=== PATIENT | male | born 1935 | race Caucasian/White ===

== ENCOUNTER 2020-11-06 18:02 | Inpatient (IN) | payer MEDICARE, BC ==
[~2020-11-06] VITALS: Ht 139.7 cm; Wt 68.1 kg
[2020-11-06] MEDS ORDERED: ATOR40TA PO (18:23)
[2020-11-06] MEDS ORDERED: DIVA-78 PO (18:23)
[2020-11-06] MEDS ORDERED: ASPI81TA31 PO (18:23)
[2020-11-06] MEDS ORDERED: CARV25TA2 PO (18:23)
--- NOTE | 2020-11-06 18:27 | NUR ---
PT IS IN ROOM #1B. DR GIL EVALUATED THE PT.
[2020-11-06] MEDS ORDERED: MELA5TAB PO (18:34)
[2020-11-06] MEDS ORDERED: NITR0.4T SL (18:34)
[2020-11-06] MEDS ORDERED: LEVO75TA7 PO (18:34)
[2020-11-06] MEDS ORDERED: POLY17PO4 PO (18:34)
[2020-11-06] MEDS ORDERED: LOSA50TA39 PO (18:34)
[2020-11-06 19:07] LABS: HEMATOCRIT 39.4 % (36.7-47.1); MEAN CORPUSCULAR HEMOGLOBIN 31.1 uug (23.8-33.4); MEAN CORPUSCULAR VOLUME 91.5 fL (73.0-96.2); PLATELET COUNT (AUTO) 176 K/uL (152-348)
--- NOTE | 2020-11-06 19:09 | NUR ---
REPORT GIVEN TO METAL TRIM ERECTOR RN.
[2020-11-06 19:15] LABS: ALANINE AMINOTRANSFERASE 18 U/L (16-63); ALKALINE PHOSPHATASE 70 U/L (50-136); ASPARTATE AMINOTRANSFERASE 20 U/L (15-37); BILIRUBIN,DIRECT 0.1 mg/dL (0.0-0.2); BILIRUBIN,TOTAL 0.6 mg/dL (0.2-1.0); CARBON DIOXIDE 25 mmol/L (21-32); CHLORIDE 107 mmol/L (98-107); CREATININE 1.1 mg/dL (0.6-1.3); GLUCOSE 104 mg/dL (74-106); POTASSIUM 4.1 mmol/L (3.5-5.1); TOTAL PROTEIN, SERUM 7.1 g/dL (6.4-8.2); UREA NITROGEN, BLOOD 31 mg/dL (7-18)
[2020-11-06] MEDS ORDERED: NITROGLYCERIN OINT 1 GM PACKET TP ONE ×2 (19:30→20:13)
[2020-11-06] MEDS ORDERED: METOPROLOL TARTRATE 50 MG TABLET PO ONE (19:30)
[2020-11-06] MEDS ORDERED: ASPIRIN 81 MG TAB.CHEW PO ONE (19:30)
[2020-11-06] MEDS ORDERED: NITROGLYCERIN 0.4 MG/TAB BOTTLE SL SCH (20:00)
[2020-11-06] MEDS: ENOXAPARIN SODIUM 40 MG/0.4 ML DISP.SYRIN SQ SCH (20:00)
[2020-11-06] MEDS ORDERED: hydrALAZINE HCL 20 MG/1 ML VIAL IV PRN (20:00)
[2020-11-06] MEDS ORDERED: ASPIRIN 81 MG TAB.CHEW ONE (20:12)
[2020-11-06] MEDS ORDERED: METOPROLOL TARTRATE 50 MG TABLET ONE (20:13)
--- NOTE | 2020-11-06 20:20 | NUR ---
Dr Bazzi spoke with Dr Philip for cardiology consult.
[2020-11-06 20:31] LABS: CHOLESTEROL 133 mg/dL (<200); HDL CHOLESTEROL 34 mg/dL (40-60); TRIGLYCERIDES 78 MG/DL (30-150)
[2020-11-06 20:34] LABS: CARBON DIOXIDE 26 mmol/L (21-32); CHLORIDE 107 mmol/L (98-107); CREATININE 1.2 mg/dL (0.6-1.3); GLUCOSE 104 mg/dL (74-106); POTASSIUM 4.1 mmol/L (3.5-5.1); UREA NITROGEN, BLOOD 30 mg/dL (7-18)
[2020-11-06 20:39] LABS: THYROID STIMULATING HORMONE 5.871 mIU/mL (0.358-3.740)
[2020-11-06 20:40] LABS: ALANINE AMINOTRANSFERASE 19 U/L (16-63); ALKALINE PHOSPHATASE 72 U/L (50-136); ASPARTATE AMINOTRANSFERASE 21 U/L (15-37); BILIRUBIN,TOTAL 0.6 mg/dL (0.2-1.0); TOTAL PROTEIN, SERUM 7.2 g/dL (6.4-8.2)
[2020-11-06] MEDS ORDERED: SIMVASTATIN 40 MG TABLET PO SCH (21:00)
[2020-11-06] MEDS ORDERED: BLOOD SUGAR DIAGNOSTIC 1 EACH STRIP VI SCH (21:00)
[2020-11-06 21:39] LABS: HEMATOCRIT 38.9 % (36.7-47.1); MEAN CORPUSCULAR HEMOGLOBIN 31.1 uug (23.8-33.4); MEAN CORPUSCULAR VOLUME 91.1 fL (73.0-96.2); PLATELET COUNT (AUTO) 180 K/uL (152-348)
[2020-11-06 23:00] VITALS: BP 118/60
--- NOTE | 2020-11-06 23:00 | NUR ---
Pt admitted from ER to Tele. Patient barely arousable with sternal rub. Will occasionally use right hand to push this nurse away during painful stimuli. PERRLA. Sinus carter on tele with occasional PVCs. Per ER nurse, do not give patient any blood thinners. ER nurse stated that this order is per Dr. Stephenson. Patient is in no distress at this time. Suction set up at bedside. IV site intact.
[2020-11-07] VITALS: BP 119/39
[2020-11-07] MEDS ORDERED: NITROGLYCERIN 0.4 MG/TAB BOTTLE SL PRN
[2020-11-07] MEDS: BLOOD SUGAR DIAGNOSTIC 1 EACH STRIP VI SCH ×4 (00:07→18:40)
--- NOTE | 2020-11-07 02:00 | NUR ---
Patient heart rate dropped to 41. Merrick Brumfield notified with orders to place pacer pads on patient. HR is now between 70-85. No distress noted. Will continue to observe patient.
[2020-11-07 04:00] VITALS: BP 147/67
--- NOTE | 2020-11-07 06:01 | NUR ---
Pt still hard to arouse but seems less somnolent this morning. Will open eyes and retract to sternal rub. Not able to follow commands. IV site intact. Pt has external pacer monitor on. V-pacing on monitor. No distress or SOB noted. No other issues or concerns at this time, will endorse to day shift.
[2020-11-07 06:12] LABS: MEAN CORPUSCULAR HEMOGLOBIN 31.3 uug (23.8-33.4); MEAN CORPUSCULAR VOLUME 92.4 fL (73.0-96.2); PLATELET COUNT (AUTO) 142 K/uL (152-348)
[2020-11-07] MEDS: LEVOTHYROXINE SODIUM 75 MCG TABLET PO SCH (06:24)
[2020-11-07 06:43] LABS: POTASSIUM 4.3 mmol/L (3.5-5.1)
--- NOTE | 2020-11-07 06:56 | NUR ---
Accucheck reading of 86. Pt is NPO waiting for ST eval and is not running fluids due to being congested and hx of CHF. Merrick Brumfield MACHINE BOBBIN WINDER notified, with no new orders at this time.
--- NOTE | 2020-11-07 07:59 | NUR ---
Received pt from shift production associate RN. Pt is a/o x 1. He is on Q4H neuro checks. Pt has external monitor pads on, V pacing. Pt on room air, NPO on Q6H accu-checks. Was able to wake pt with moderate touch to arm this morning and responded to questions. He denied being in pain and stated that he was in [place]. shift production associate reported to hold all blood thinners until cardiology sees pt and to hold coreg due to low puld without external pads. Pt does not seem to be in acute distress, is back asleep. will continue to monitor.
--- NOTE | 2020-11-07 08:14 | NUR ---
SW Consult technicians and trades workers attempted to connect with patient to provide stroke resources but was unable to see pt due to pt sleeping.
[2020-11-07] MEDS: DIVALPROEX 250 MG TABLET.DR PO SCH ×2 (09:00→17:00)
[2020-11-07] MEDS: LOSARTAN POTASSIUM 50 MG TABLET PO SCH (09:00)
[2020-11-07] MEDS: ASPIRIN 81 MG TAB.CHEW PO SCH (09:00)
[2020-11-07] MEDS ORDERED: CARVEDILOL 25 MG TABLET PO SCH (09:00)
[2020-11-07] MEDS ORDERED: ASPIRIN EC 81 MG TABLET.DR PO SCH (09:00)
[2020-11-07] MEDS: PANTOPRAZOLE SODIUM 40 MG VIAL IV SCH (11:10)
[2020-11-07 12:00] VITALS: BP 149/62
[2020-11-07] MEDS: IV D5 1/2 NS 1000 ML 1,000 ML IV PRN (12:39)
[2020-11-07 16:00] VITALS: BP 100/62
--- NOTE | 2020-11-07 16:33 | NUR ---
Pt is more verbal and responsive, he was able to state that he is in the hospital and that he has children but did not want to state their names. Pt responds to communication. right side is strong. will continue to monitor.
[2020-11-07] MEDS ORDERED: Medication Not On Formulary EA (Melatonin 1 TAB) PO SCH (18:00)
[2020-11-07 20:05] VITALS: BP 147/67
--- NOTE | 2020-11-07 20:23 | NUR ---
Patient in bed awake alert x1. Responsive to verbal and stimuli but unable to follow commands.Iv on right Ac 18 g with IVF infusing well. Tolerated well.Patient incontinent. Pericare rendered and repositioned patient.Received report from day shift nurse to continue to adm Lovenox as per ordered by .Due meds given. Will continue to monitor.Son/janie at Bedside.VSs
[2020-11-07] MEDS: ENOXAPARIN SODIUM 40 MG/0.4 ML DISP.SYRIN SQ SCH (20:37)
[2020-11-07] MEDS: MELATONIN 3 MG TABLET PO SCH (21:00)
[2020-11-07] MEDS: ATORVASTATIN 40 MG TABLET PO SCH (21:00)
[2020-11-08 00:05] VITALS: BP 147/62
[2020-11-08] MEDS: BLOOD SUGAR DIAGNOSTIC 1 EACH STRIP VI SCH ×4 (00:39→17:47)
[2020-11-08] MEDS: IV D5 1/2 NS 1000 ML 1,000 ML IV PRN ×2 (01:44→14:39)
[2020-11-08 04:05] VITALS: BP 153/84
[2020-11-08 04:30] LABS: *BILIRUBIN,URIN NEGATIVE (NEGATIVE); *BLOOD, URINE 3+ (NEGATIVE); *CLARITY,URINE CLOUDY (CLEAR); *COLOR,URINE YELLOW (YELLOW); *KETONES,URINE NEGATIVE (NEGATIVE); *UROBILINOGEN,URINE 0.2 E.U./dl (NORMAL); LEUKOCYTE ESTERASE ,URINE 3+ (NEGATIVE); NITRITE, URINE POSITIVE (NEGATIVE); UGLUCOSE NEGATIVE (NEGATIVE)
[2020-11-08 04:43] LABS: BACTERIA,URINE MANY /HPF (NONE SEEN); RBC,URINE 50-80 /HPF (0-3); SQUAMOUS EPITHELIAL CELL,UR FEW /HPF (NONE SEEN); WBC,URINE TNTC /HPF (0-3)
[2020-11-08] MEDS: LEVOTHYROXINE SODIUM 75 MCG TABLET PO SCH (06:58)
--- NOTE | 2020-11-08 08:30 | NUR ---
pt seen by ST, swallow eval performed, per ST patient will be placed on pureed diet with nectar thick liquids.
[2020-11-08] MEDS: ASPIRIN 81 MG TAB.CHEW PO SCH (08:39)
[2020-11-08] MEDS: PANTOPRAZOLE SODIUM 40 MG VIAL IV SCH (08:39)
[2020-11-08 08:43] VITALS: BP 181/78
[2020-11-08] MEDS: LOSARTAN POTASSIUM 50 MG TABLET PO SCH (08:43)
[2020-11-08] MEDS: DIVALPROEX 250 MG TABLET.DR PO SCH ×2 (08:47→17:00)
--- NOTE | 2020-11-08 09:01 | NUR ---
Rounds by Dr. Kenyon, with goal of the day to have patient on R/A, DTR currently at bedside speaking with Dr. Kenyon. Addendum: 11/08/20 at 0909 by OMAIRA CASTELLANO RN wrong pt
--- NOTE | 2020-11-08 09:09 | NUR ---
patient had morning medications crushed with apple sauce, tolerated well, no episodes of coughing after swallowing medications, patient is currently being seen by PT
[2020-11-08] MEDS: CLOPIDOGREL 75 MG TABLET PO SCH (11:37)
--- NOTE | 2020-11-08 13:55 | NUR ---
SW Consult bunk house worker attempted to connect with patient to intervene and provide stroke resources but was unable to talk to pt due to lack of participation. Pt was not alert nor oriented. Pt was shaking when SW introduced herself and began to move. Pt stated to SW, get the hell out of here. Pt began to reach for his pillow and therefore, SW walked out of room. SHERI checked in with RN in charge of pt (Rosalba Burrell RN) and asked her to call SW if family members come visit pt to provide resources for stroke. Due to pt not being able to cooperate, SW was not able to complete PHQ9. Will follow up.
[2020-11-08 15:53] VITALS: BP 145/68
--- NOTE | 2020-11-08 19:00 | NUR ---
endorsement given to oncoming shift.
--- NOTE | 2020-11-08 19:45 | NUR ---
Patient in resting in bed comfortably .HOB elevated.On Ra.No acute distress noted.Iv on right AC with IVF running well.Patient is schedule for CTA brain tomorrow.SOn at bedside,made aware and consent signed by patient.Will continue to monitor patient. Addendum: 11/09/20 at 0446 by CHAR BUSTOS RN Correction: Consent signed by Joe /Omer.
[2020-11-08 20:05] VITALS: BP 156/78
[2020-11-08] MEDS: ATORVASTATIN 40 MG TABLET PO SCH (21:08)
[2020-11-08] MEDS: MELATONIN 3 MG TABLET PO SCH (21:08)
[2020-11-08] MEDS: ENOXAPARIN SODIUM 40 MG/0.4 ML DISP.SYRIN SQ SCH (21:18)
[2020-11-09] VITALS: BP 106/58
[2020-11-09] MEDS: BLOOD SUGAR DIAGNOSTIC 1 EACH STRIP VI SCH ×4 (00:01→18:10)
--- NOTE | 2020-11-09 00:02 | NUR ---
Patient's Blood sugar is 169.Notified Dr Kostas Ramos at this time.Will continue to monitor.
[2020-11-09] MEDS: IV D5 1/2 NS 1000 ML 1,000 ML IV PRN ×2 (03:10→13:36)
[2020-11-09 04:05] VITALS: BP 114/52
[2020-11-09] MEDS: LEVOTHYROXINE SODIUM 75 MCG TABLET PO SCH (06:00)
--- NOTE | 2020-11-09 07:13 | NUR ---
Patient appears lethargic but aroused by tactile stimuli then drift back to sleep.No acute distress noted. NSR on Tele .Continue on IVF. VSS.
[2020-11-09] MEDS: PANTOPRAZOLE SODIUM 40 MG VIAL IV SCH (08:17)
[2020-11-09] MEDS: CLOPIDOGREL 75 MG TABLET PO SCH (08:56)
[2020-11-09] MEDS: LOSARTAN POTASSIUM 50 MG TABLET PO SCH (08:56)
[2020-11-09] MEDS: ASPIRIN 81 MG TAB.CHEW PO SCH (08:56)
--- NOTE | 2020-11-09 09:11 | NUR ---
seen by dr duran and [email or web address] see notes
[2020-11-09 12:00] VITALS: BP 99/52
[2020-11-09 16:00] VITALS: BP 132/62
[2020-11-09] MEDS ORDERED: IOHEXOL 350 100 ML INFUS..BTL ONE (16:14)
[2020-11-09] MEDS ORDERED: IV NORMAL SALINE 250 ML IV ONE (16:14)
[2020-11-09] MEDS ORDERED: SWABABLE VALVE TRANSFER SET EA MC ONE (16:14)
--- NOTE | 2020-11-09 17:46 | NUR ---
TRIED TO REACH DR DU REGARDING RESULTS OF CTA BRAIN MESSAGE LEFT ON ANSWERING MACHINE
--- NOTE | 2020-11-09 18:13 | NUR ---
ALSO TRIED TO REACH DR KUMAR REGARDING RESULTS OF CTA BRAIN MESSAGE LEFT
[2020-11-09] MEDS ORDERED: CLOP75TA15 PO (20:11)
[2020-11-09] MEDS ORDERED: PANT40VI IV (20:11)
[2020-11-09] MEDS ORDERED: ENOX40DI SQ (20:11)
== END 2020-11-09 19:44 | DRG 64 ==
LOC: ER 18:08 → TELE3 21:02 → MEDSURG3 11-09 08:22
PROVIDERS: ADMIT Internal Medicine; ATTEND Internal Medicine
DX: I63.9 Cerebral infarction, unspecified (principal); I21.4 Non-ST elevation (NSTEMI) myocardial infarction; G93.41 Metabolic encephalopathy; N17.0 Acute kidney failure with tubular necrosis; I69.354 Hemiplegia and hemiparesis following cerebral infarction affecting left non-dominant side; I50.32 Chronic diastolic (congestive) heart failure; F03.90 Unspecified dementia, unspecified severity, without behavioral disturbance, psychotic disturbance, mood disturbance, and anxiety; I11.0 Hypertensive heart disease with heart failure; I25.10 Atherosclerotic heart disease of native coronary artery without angina pectoris; I25.2 Old myocardial infarction; Z79.82 Long term (current) use of aspirin; R00.1 Bradycardia, unspecified; Z20.822 Contact with and (suspected) exposure to COVID-19
CPT/HCPCS: 36415; 70030-TC; 70450; 70496; 71045; 83605; 84443; 85025; 85651; 85730; 87040; 87077; 87086; 93005; 93307; 97161; A4663; A6209; C1758; C9113; G0378; J1650; J3490; J7030; J7050; Q9967

== ENCOUNTER 2020-11-09 14:10 | Inpatient (IN) | payer MEDICARE, BC ==
[~2020-11-09] VITALS: Ht 139.7 cm; Wt 68.0 kg
[~2020-11-09 14:10] MED LIST: ASPI81TA31 PO; ATOR40TA PO; CARV25TA2 PO; DIVA-78 PO; LEVO75TA7 PO; LOSA50TA39 PO; MELA5TAB PO; NITR0.4T SL; POLY17PO4 PO
[2020-11-09] MEDS ORDERED: Z GUARD REMEDY PASTE 57 GM TUBE TOP PRN (20:00)
[2020-11-09 20:05] VITALS: BP 135/55
[2020-11-09] MEDS ORDERED: CLOP75TA15 PO (20:11)
[2020-11-09] MEDS ORDERED: PANT40VI IV (20:11)
[2020-11-09] MEDS ORDERED: ENOX40DI SQ (20:11)
[2020-11-09] MEDS ORDERED: hydrALAZINE HCL 20 MG/1 ML VIAL IV PRN (20:15)
[2020-11-09] MEDS ORDERED: NITROGLYCERIN 0.4 MG/TAB BOTTLE SL SCH (21:45)
[2020-11-09] MEDS ORDERED: MIRALAX 17 GM POWD.PACK PO PRN (21:45)
[2020-11-09] MEDS: IV D5 1/2 NS 1000 ML 1,000 ML IV PRN (22:03)
[2020-11-10 04:05] VITALS: BP 135/55
[2020-11-10] MEDS: LEVOTHYROXINE SODIUM 75 MCG TABLET PO SCH (06:21)
[2020-11-10] MEDS: PANTOPRAZOLE SODIUM 40 MG TABLET.DR PO SCH (06:21)
[2020-11-10] MEDS: BLOOD SUGAR DIAGNOSTIC 1 EACH STRIP VI SCH ×4 (06:30→20:19)
[2020-11-10 07:38] VITALS: BP 121/48
[2020-11-10] MEDS: ENOXAPARIN SODIUM 40 MG/0.4 ML DISP.SYRIN SQ SCH (08:16)
[2020-11-10] MEDS: DOCUSATE SODIUM 100 MG CAPSULE PO SCH ×2 (08:17→20:16)
[2020-11-10] MEDS: LOSARTAN POTASSIUM 50 MG TABLET PO SCH (08:18)
[2020-11-10] MEDS: ASPIRIN EC 81 MG TABLET.DR PO SCH (08:18)
[2020-11-10] MEDS: MULTIVITAMINS,THERAPEUTIC TABLET PO SCH (08:18)
[2020-11-10] MEDS: CLOPIDOGREL 75 MG TABLET PO SCH (08:18)
[2020-11-10] MEDS: CARVEDILOL 6.25 MG TABLET PO SCH ×2 (08:18→20:16)
[2020-11-10] MEDS ORDERED: NITROGLYCERIN 0.4 MG/TAB BOTTLE SL PRN (10:12)
[2020-11-10] MEDS: IV D5 1/2 NS 1000 ML 1,000 ML IV PRN (10:46)
[2020-11-10 11:40] VITALS: BP 136/75
[2020-11-10 16:00] VITALS: BP 126/56
[2020-11-10 20:00] VITALS: BP 137/78
[2020-11-10] MEDS: MELATONIN 3 MG TABLET PO SCH (20:16)
[2020-11-10] MEDS: ATORVASTATIN 40 MG TABLET PO SCH (20:16)
[2020-11-11 04:00] VITALS: BP 153/76
[2020-11-11] MEDS: BLOOD SUGAR DIAGNOSTIC 1 EACH STRIP VI SCH ×4 (06:19→20:46)
[2020-11-11] MEDS ORDERED: PANTOPRAZOLE SODIUM 40 MG TABLET.DR PO ONE (06:42)
[2020-11-11] MEDS ORDERED: LEVOTHYROXINE SODIUM 75 MCG TABLET ONE (06:43)
[2020-11-11] MEDS: LEVOTHYROXINE SODIUM 75 MCG TABLET PO SCH (06:48)
[2020-11-11] MEDS: PANTOPRAZOLE SODIUM 40 MG TABLET.DR PO SCH (06:48)
[2020-11-11] MEDS: LOSARTAN POTASSIUM 50 MG TABLET PO SCH (08:02)
[2020-11-11 08:18] VITALS: BP 191/84
[2020-11-11] MEDS: ASPIRIN EC 81 MG TABLET.DR PO SCH (08:20)
[2020-11-11] MEDS: DOCUSATE SODIUM 100 MG CAPSULE PO SCH ×2 (08:20→21:00)
[2020-11-11] MEDS: CLOPIDOGREL 75 MG TABLET PO SCH (08:21)
[2020-11-11] MEDS: MULTIVITAMINS,THERAPEUTIC TABLET PO SCH (08:21)
[2020-11-11] MEDS: ENOXAPARIN SODIUM 40 MG/0.4 ML DISP.SYRIN SQ SCH (08:21)
[2020-11-11] MEDS: CARVEDILOL 6.25 MG TABLET PO SCH ×2 (08:33→21:00)
[2020-11-11 10:30] VITALS: BP 165/88
[2020-11-11] MEDS: IV D5 1/2 NS 1000 ML 1,000 ML IV PRN ×2 (12:34→23:20)
[2020-11-11] MEDS: ACETAMINOPHEN 325 MG TABLET PO PRN (15:23)
[2020-11-11] MEDS: hydrALAZINE HCL 25 MG TABLET PO PRN (15:25)
[2020-11-11 15:36] VITALS: BP 177/87
[2020-11-11 16:30] LABS: *BILIRUBIN,URIN NEGATIVE (NEGATIVE); *BLOOD, URINE 3+ (NEGATIVE); *CLARITY,URINE CLOUDY (CLEAR); *COLOR,URINE YELLOW (YELLOW); *KETONES,URINE NEGATIVE (NEGATIVE); LEUKOCYTE ESTERASE ,URINE 3+ (NEGATIVE); NITRITE, URINE NEGATIVE (NEGATIVE); PH,URINE 5.5 (5.0-8.0); UGLUCOSE NEGATIVE (NEGATIVE)
[2020-11-11 16:38] LABS: BACTERIA,URINE MANY /HPF (NONE SEEN); RBC,URINE TNTC /HPF (0-3); URINE AMORPHOUS URATE MODERATE /HPF; WBC,URINE TNTC /HPF (0-3)
[2020-11-11 17:08] LABS: HEMATOCRIT 31.2 % (36.7-47.1); MEAN CORPUSCULAR HEMOGLOBIN 30.9 uug (23.8-33.4); MEAN CORPUSCULAR VOLUME 89.8 fL (73.0-96.2); PLATELET COUNT (AUTO) 115 K/uL (152-348)
[2020-11-11 17:20] LABS: CARBON DIOXIDE 23 mmol/L (21-32); CHLORIDE 108 mmol/L (98-107); CREATININE 1.1 mg/dL (0.6-1.3); GLUCOSE 136 mg/dL (74-106); POTASSIUM 3.2 mmol/L (3.5-5.1); UREA NITROGEN, BLOOD 16 mg/dL (7-18)
[2020-11-11 17:26] LABS: ALANINE AMINOTRANSFERASE 16 U/L (16-63); ALKALINE PHOSPHATASE 46 U/L (50-136); ASPARTATE AMINOTRANSFERASE 20 U/L (15-37); BILIRUBIN,TOTAL 0.7 mg/dL (0.2-1.0); TOTAL PROTEIN, SERUM 5.3 g/dL (6.4-8.2)
[2020-11-11 20:39] VITALS: BP 144/59
[2020-11-11] MEDS: ATORVASTATIN 40 MG TABLET PO SCH (21:00)
[2020-11-11] MEDS: MELATONIN 3 MG TABLET PO SCH (21:00)
[2020-11-12 04:44] VITALS: BP 144/70
[2020-11-12] MEDS: LEVOTHYROXINE SODIUM 75 MCG TABLET PO SCH (06:39)
[2020-11-12] MEDS: PANTOPRAZOLE SODIUM 40 MG TABLET.DR PO SCH (06:39)
[2020-11-12] MEDS: BLOOD SUGAR DIAGNOSTIC 1 EACH STRIP VI SCH ×4 (06:42→20:44)
[2020-11-12] MEDS: ENOXAPARIN SODIUM 40 MG/0.4 ML DISP.SYRIN SQ SCH (08:34)
[2020-11-12 09:00] VITALS: BP 146/57
[2020-11-12] MEDS ORDERED: CEFTRIAXONE 1 G in IV DEXTROSE 5% 50 ML IV SCH (09:00)
[2020-11-12] MEDS: ASPIRIN EC 81 MG TABLET.DR PO SCH (09:10)
[2020-11-12] MEDS: DOCUSATE SODIUM 100 MG CAPSULE PO SCH ×2 (09:11→20:37)
[2020-11-12] MEDS: MULTIVITAMINS,THERAPEUTIC TABLET PO SCH (09:11)
[2020-11-12] MEDS: LOSARTAN POTASSIUM 50 MG TABLET PO SCH (09:11)
[2020-11-12] MEDS: MODAFINIL 100 MG TABLET PO SCH (09:11)
[2020-11-12] MEDS: CLOPIDOGREL 75 MG TABLET PO SCH (09:11)
[2020-11-12] MEDS: CARVEDILOL 6.25 MG TABLET PO SCH ×2 (09:12→20:41)
[2020-11-12] MEDS: IV D5 1/2 NS 1000 ML 1,000 ML IV PRN (12:49)
[2020-11-12] MEDS: CEFEPIME HCL 2 G in IV DEXTROSE 5% 100 ML IV SCH (13:33)
[2020-11-12] MEDS ORDERED: CEFEPIME HCL 2 G in IV DEXTROSE 5% 100 ML IV SCH (14:00)
[2020-11-12] MEDS: ACETAMINOPHEN 325 MG TABLET PO PRN (15:05)
[2020-11-12 16:03] VITALS: BP 119/43
[2020-11-12 20:00] VITALS: BP 133/70
[2020-11-12] MEDS: MELATONIN 3 MG TABLET PO SCH (20:37)
[2020-11-12] MEDS: ATORVASTATIN 40 MG TABLET PO SCH (20:44)
[2020-11-13] VITALS: BP 147/59
[2020-11-13] MEDS: CEFEPIME HCL 2 G in IV DEXTROSE 5% 100 ML IV SCH ×2 (01:15→15:20)
[2020-11-13] MEDS: IV D5 1/2 NS 1000 ML 1,000 ML IV PRN ×2 (03:22→17:00)
[2020-11-13 04:00] VITALS: BP 134/56
[2020-11-13] MEDS: BLOOD SUGAR DIAGNOSTIC 1 EACH STRIP VI SCH ×4 (05:48→20:55)
[2020-11-13] MEDS: PANTOPRAZOLE SODIUM 40 MG TABLET.DR PO SCH (05:49)
[2020-11-13] MEDS: LEVOTHYROXINE SODIUM 75 MCG TABLET PO SCH (05:49)
[2020-11-13 06:55] LABS: HEMATOCRIT 30.8 % (36.7-47.1); MEAN CORPUSCULAR HEMOGLOBIN 31.4 uug (23.8-33.4); MEAN CORPUSCULAR VOLUME 90.2 fL (73.0-96.2); PLATELET COUNT (AUTO) 105 K/uL (152-348)
[2020-11-13 07:18] LABS: CARBON DIOXIDE 21 mmol/L (21-32); CHLORIDE 107 mmol/L (98-107); CREATININE 1.4 mg/dL (0.6-1.3); GLUCOSE 168 mg/dL (74-106); MAGNESIUM 1.7 mg/dL (1.8-2.4); PHOSPHOROUS 2.7 mg/dL (2.5-4.9); POTASSIUM 3.2 mmol/L (3.5-5.1); UREA NITROGEN, BLOOD 24 mg/dL (7-18)
[2020-11-13 08:00] VITALS: BP 152/66
[2020-11-13] MEDS: ASPIRIN EC 81 MG TABLET.DR PO SCH (09:51)
[2020-11-13] MEDS: CARVEDILOL 6.25 MG TABLET PO SCH ×2 (09:52→20:53)
[2020-11-13] MEDS: DOCUSATE SODIUM 100 MG CAPSULE PO SCH ×2 (09:57→20:52)
[2020-11-13] MEDS: MODAFINIL 100 MG TABLET PO SCH (09:57)
[2020-11-13] MEDS: LOSARTAN POTASSIUM 50 MG TABLET PO SCH (09:58)
[2020-11-13] MEDS: MULTIVITAMINS,THERAPEUTIC TABLET PO SCH (09:58)
[2020-11-13] MEDS: CLOPIDOGREL 75 MG TABLET PO SCH (09:58)
[2020-11-13] MEDS: ENOXAPARIN SODIUM 40 MG/0.4 ML DISP.SYRIN SQ SCH (09:59)
[2020-11-13] MEDS ORDERED: POTASSIUM CHLORIDE 20 MEQ TAB.PRT.SR PO ONE (12:00)
[2020-11-13] MEDS ORDERED: MAGNESIUM OXIDE 400 MG TABLET PO ONE (12:00)
[2020-11-13 16:00] VITALS: BP 141/63
[2020-11-13] MEDS: CLOTRIMAZOLE 1% CREAM 30 GM TUBE TOP SCH (17:45)
[2020-11-13] MEDS: Z GUARD REMEDY PASTE 57 GM TUBE TOP SCH (17:45)
[2020-11-13 20:00] VITALS: BP 126/54
[2020-11-13] MEDS: ATORVASTATIN 40 MG TABLET PO SCH (20:52)
[2020-11-13] MEDS: MELATONIN 3 MG TABLET PO SCH (20:53)
[2020-11-14] MEDS: CEFEPIME HCL 2 G in IV DEXTROSE 5% 100 ML IV SCH (01:14)
[2020-11-14 04:00] VITALS: BP 137/58
[2020-11-14] MEDS: BLOOD SUGAR DIAGNOSTIC 1 EACH STRIP VI SCH ×4 (05:23→20:47)
[2020-11-14] MEDS: LEVOTHYROXINE SODIUM 75 MCG TABLET PO SCH (05:24)
[2020-11-14] MEDS: PANTOPRAZOLE ORAL SUSPENSION 40 MG SUSPDR.PKT PO SCH (05:24)
[2020-11-14 06:01] LABS: ABG HCO3 20.4 mmol/L; ABG PH 7.437 (7.350-7.450); ABG PO2 73.3 mmHg (75.0-100.0); ABG SITE RIGHT BRACHIAL; ABG TOTAL HEMOGLOBIN 10.3 G/dL (13.5-18.0); COHb 0.4 % (0.5-1.5); MetHb 0.3 % (0.0-1.5); O2Hb 94.7 % (94.0-97.0); VENT MODE Nasal Cannula
[2020-11-14 06:19] LABS: HEMATOCRIT 28.6 % (36.7-47.1); MEAN CORPUSCULAR HEMOGLOBIN 30.9 uug (23.8-33.4); MEAN CORPUSCULAR VOLUME 88.9 fL (73.0-96.2); PLATELET COUNT (AUTO) 109 K/uL (152-348)
[2020-11-14 06:37] LABS: BILIRUBIN,TOTAL 0.7 mg/dL (0.2-1.0); CREATININE 1.3 mg/dL (0.6-1.3); MAGNESIUM 1.9 mg/dL (1.8-2.4); PHOSPHOROUS 2.2 mg/dL (2.5-4.9); POTASSIUM 3.4 mmol/L (3.5-5.1); TOTAL PROTEIN, SERUM 5.6 g/dL (6.4-8.2)
[2020-11-14 08:00] VITALS: BP 137/65
[2020-11-14] MEDS ORDERED: POTASSIUM PHOSPHATE MM 15 MMOL in IV NORMAL SALINE 250 ML IV ONE (08:45)
[2020-11-14] MEDS: DOCUSATE SODIUM 100 MG/10 ML LIQUID UDC PO SCH ×2 (09:49→20:47)
[2020-11-14] MEDS: MODAFINIL 100 MG TABLET PO SCH (09:50)
[2020-11-14] MEDS: FUROSEMIDE 20 MG TABLET PO SCH (09:50)
[2020-11-14] MEDS: CLOPIDOGREL 75 MG TABLET PO SCH (09:50)
[2020-11-14] MEDS: ASPIRIN 81 MG TAB.CHEW PO SCH (09:50)
[2020-11-14] MEDS: LOSARTAN POTASSIUM 50 MG TABLET PO SCH (09:52)
[2020-11-14] MEDS: MULTIVITAMINS,THERAPEUTIC TABLET PO SCH (09:52)
[2020-11-14] MEDS: CARVEDILOL 6.25 MG TABLET PO SCH ×2 (09:52→20:44)
[2020-11-14] MEDS: CLOTRIMAZOLE 1% CREAM 30 GM TUBE TOP SCH ×2 (10:07→17:11)
[2020-11-14] MEDS: Z GUARD REMEDY PASTE 57 GM TUBE TOP SCH ×2 (10:07→17:13)
[2020-11-14] MEDS: ENOXAPARIN SODIUM 30 MG/0.3 ML DISP.SYRIN SUBCUT SCH (10:08)
[2020-11-14] MEDS: POTASSIUM PHOSPHATE MM 7.5 MMOL in IV NORMAL SALINE 97.5 ML IV SCH ×2 (10:15→14:40)
[2020-11-14] MEDS: IV D5 1/2 NS 1000 ML 1,000 ML IV PRN (10:16)
[2020-11-14 12:00] VITALS: BP 138/60
[2020-11-14] MEDS: CEFTRIAXONE 1 G in IV DEXTROSE 5% 50 ML IV SCH (13:27)
[2020-11-14 16:34] VITALS: BP 149/68
[2020-11-14 20:00] VITALS: BP 147/66
[2020-11-14] MEDS: ATORVASTATIN 40 MG TABLET PO SCH (20:44)
[2020-11-14] MEDS: MELATONIN 3 MG TABLET PO SCH (20:44)
[2020-11-15 04:00] VITALS: BP 159/55
[2020-11-15] MEDS: IV D5 1/2 NS 1000 ML 1,000 ML IV PRN (05:25)
[2020-11-15] MEDS: LEVOTHYROXINE SODIUM 75 MCG TABLET PO SCH (05:46)
[2020-11-15] MEDS: BLOOD SUGAR DIAGNOSTIC 1 EACH STRIP VI SCH ×4 (05:46→20:21)
[2020-11-15] MEDS: PANTOPRAZOLE ORAL SUSPENSION 40 MG SUSPDR.PKT PO SCH (05:47)
[2020-11-15 07:57] VITALS: BP 93/66
[2020-11-15] MEDS: ASPIRIN 81 MG TAB.CHEW PO SCH (08:14)
[2020-11-15] MEDS: MULTIVITAMINS,THERAPEUTIC TABLET PO SCH (08:14)
[2020-11-15] MEDS: FUROSEMIDE 20 MG TABLET PO SCH (08:14)
[2020-11-15] MEDS: DOCUSATE SODIUM 100 MG/10 ML LIQUID UDC PO SCH ×2 (08:14→20:11)
[2020-11-15] MEDS: MODAFINIL 100 MG TABLET PO SCH (08:14)
[2020-11-15] MEDS: CLOPIDOGREL 75 MG TABLET PO SCH (08:14)
[2020-11-15] MEDS: CARVEDILOL 6.25 MG TABLET PO SCH ×2 (08:15→20:11)
[2020-11-15] MEDS: CLOTRIMAZOLE 1% CREAM 30 GM TUBE TOP SCH ×2 (08:16→16:52)
[2020-11-15] MEDS: Z GUARD REMEDY PASTE 57 GM TUBE TOP SCH ×2 (08:16→16:52)
[2020-11-15] MEDS: LOSARTAN POTASSIUM 50 MG TABLET PO SCH (08:16)
[2020-11-15] MEDS: ENOXAPARIN SODIUM 30 MG/0.3 ML DISP.SYRIN SUBCUT SCH (08:18)
[2020-11-15] MEDS: CEFTRIAXONE 1 G in IV DEXTROSE 5% 50 ML IV SCH (12:26)
[2020-11-15 15:45] VITALS: BP 162/72
[2020-11-15] MEDS: MELATONIN 3 MG TABLET PO SCH (20:03)
[2020-11-15] MEDS: ATORVASTATIN 40 MG TABLET PO SCH (20:03)
[2020-11-15 20:41] VITALS: BP 124/77
[2020-11-16] VITALS (8 sets, daily range): BP systolic 98–172; BP diastolic 47–75
[2020-11-16] MEDS: PANTOPRAZOLE ORAL SUSPENSION 40 MG SUSPDR.PKT PO SCH (05:21)
[2020-11-16] MEDS: LEVOTHYROXINE SODIUM 75 MCG TABLET PO SCH (05:22)
[2020-11-16 06:36] LABS: HEMATOCRIT 29.5 % (36.7-47.1); MEAN CORPUSCULAR HEMOGLOBIN 32.7 uug (23.8-33.4); MEAN CORPUSCULAR VOLUME 92.4 fL (73.0-96.2); PLATELET COUNT (AUTO) 162 K/uL (152-348)
[2020-11-16 06:53] LABS: CREATININE 1.1 mg/dL (0.6-1.3); MAGNESIUM 1.8 mg/dL (1.8-2.4); PHOSPHOROUS 2.6 mg/dL (2.5-4.9); POTASSIUM 3.5 mmol/L (3.5-5.1)
[2020-11-16] MEDS: ASPIRIN 81 MG TAB.CHEW PO SCH (08:01)
[2020-11-16] MEDS: DOCUSATE SODIUM 100 MG/10 ML LIQUID UDC PO SCH ×2 (08:01→20:43)
[2020-11-16] MEDS: MULTIVITAMINS,THERAPEUTIC TABLET PO SCH (08:01)
[2020-11-16] MEDS: FUROSEMIDE 20 MG TABLET PO SCH (08:01)
[2020-11-16] MEDS: CLOPIDOGREL 75 MG TABLET PO SCH (08:01)
[2020-11-16] MEDS: MODAFINIL 100 MG TABLET PO SCH (08:01)
[2020-11-16] MEDS: hydrALAZINE HCL 25 MG TABLET PO PRN (08:02)
[2020-11-16] MEDS: LOSARTAN POTASSIUM 50 MG TABLET PO SCH (08:02)
[2020-11-16] MEDS: CARVEDILOL 6.25 MG TABLET PO SCH ×2 (08:02→20:44)
[2020-11-16] MEDS: ENOXAPARIN SODIUM 30 MG/0.3 ML DISP.SYRIN SUBCUT SCH (08:36)
[2020-11-16] MEDS: CLOTRIMAZOLE 1% CREAM 30 GM TUBE TOP SCH ×2 (08:37→16:46)
[2020-11-16] MEDS: Z GUARD REMEDY PASTE 57 GM TUBE TOP SCH ×2 (08:38→16:46)
[2020-11-16] MEDS: ACETAMINOPHEN 325 MG TABLET PO PRN (10:14)
[2020-11-16] MEDS: CEFTRIAXONE 1 G in IV DEXTROSE 5% 50 ML IV SCH (11:59)
[2020-11-16] MEDS: MELATONIN 3 MG TABLET PO SCH (20:44)
[2020-11-16] MEDS: ATORVASTATIN 40 MG TABLET PO SCH (20:45)
[2020-11-17 04:00] VITALS: BP 158/62
[2020-11-17] MEDS: PANTOPRAZOLE ORAL SUSPENSION 40 MG SUSPDR.PKT PO SCH (06:15)
[2020-11-17] MEDS: LEVOTHYROXINE SODIUM 75 MCG TABLET PO SCH (06:15)
[2020-11-17] MEDS: LOSARTAN POTASSIUM 50 MG TABLET PO SCH (09:00)
[2020-11-17] MEDS: CARVEDILOL 6.25 MG TABLET PO SCH ×2 (09:00→20:25)
[2020-11-17] MEDS: MULTIVITAMINS,THERAPEUTIC TABLET PO SCH (10:03)
[2020-11-17] MEDS: FUROSEMIDE 20 MG TABLET PO SCH (10:03)
[2020-11-17] MEDS: DOCUSATE SODIUM 100 MG/10 ML LIQUID UDC PO SCH ×2 (10:03→20:24)
[2020-11-17] MEDS: ASPIRIN 81 MG TAB.CHEW PO SCH (10:03)
[2020-11-17] MEDS: MODAFINIL 100 MG TABLET PO SCH (10:03)
[2020-11-17] MEDS: CLOPIDOGREL 75 MG TABLET PO SCH (10:04)
[2020-11-17] MEDS: CLOTRIMAZOLE 1% CREAM 30 GM TUBE TOP SCH ×2 (10:06→18:30)
[2020-11-17] MEDS: Z GUARD REMEDY PASTE 57 GM TUBE TOP SCH ×2 (10:07→18:30)
[2020-11-17] MEDS: ENOXAPARIN SODIUM 30 MG/0.3 ML DISP.SYRIN SUBCUT SCH (10:09)
[2020-11-17] MEDS: CEFTRIAXONE 1 G in IV DEXTROSE 5% 50 ML IV SCH (12:03)
[2020-11-17 15:57] VITALS: BP 150/67
[2020-11-17] MEDS: ATORVASTATIN 40 MG TABLET PO SCH (20:24)
[2020-11-17] MEDS: MELATONIN 3 MG TABLET PO SCH (20:24)
[2020-11-17 20:37] VITALS: BP 166/84
[2020-11-18 04:34] VITALS: BP 180/77
[2020-11-18] MEDS: hydrALAZINE HCL 25 MG TABLET PO PRN (05:12)
[2020-11-18] MEDS: LEVOTHYROXINE SODIUM 75 MCG TABLET PO SCH (06:21)
[2020-11-18] MEDS: PANTOPRAZOLE ORAL SUSPENSION 40 MG SUSPDR.PKT PO SCH (06:21)
[2020-11-18 07:43] VITALS: BP 155/69
[2020-11-18] MEDS ORDERED: LOSARTAN POTASSIUM 50 MG TABLET PO SCH (09:00)
[2020-11-18] MEDS ORDERED: LOSARTAN POTASSIUM 25 MG TABLET PO SCH (09:00)
[2020-11-18] MEDS ORDERED: CLONIDINE-TTS 1 PATCH TD SCH (09:30)
[2020-11-18] MEDS: MULTIVITAMINS,THERAPEUTIC TABLET PO SCH (10:02)
[2020-11-18] MEDS: MODAFINIL 100 MG TABLET PO SCH (10:02)
[2020-11-18] MEDS: DOCUSATE SODIUM 100 MG/10 ML LIQUID UDC PO SCH ×2 (10:02→20:03)
[2020-11-18] MEDS: FUROSEMIDE 20 MG TABLET PO SCH (10:03)
[2020-11-18] MEDS: ASPIRIN 81 MG TAB.CHEW PO SCH (10:03)
[2020-11-18] MEDS: CARVEDILOL 6.25 MG TABLET PO SCH ×2 (10:03→20:11)
[2020-11-18] MEDS: Z GUARD REMEDY PASTE 57 GM TUBE TOP SCH ×2 (10:04→17:26)
[2020-11-18] MEDS: CLOPIDOGREL 75 MG TABLET PO SCH (10:04)
[2020-11-18] MEDS: CLOTRIMAZOLE 1% CREAM 30 GM TUBE TOP SCH ×2 (10:05→17:25)
[2020-11-18] MEDS: ENOXAPARIN SODIUM 30 MG/0.3 ML DISP.SYRIN SUBCUT SCH (10:06)
[2020-11-18] MEDS: CEFTRIAXONE 1 G in IV DEXTROSE 5% 50 ML IV SCH (12:56)
[2020-11-18 16:21] VITALS: BP 169/68
[2020-11-18] MEDS: MELATONIN 3 MG TABLET PO SCH (20:02)
[2020-11-18] MEDS: ATORVASTATIN 40 MG TABLET PO SCH (20:03)
[2020-11-18 20:06] VITALS: BP 149/68
[2020-11-18 20:11] VITALS: BP 149/68
== END 2020-11-18 20:45 | disposition short-term general hospital (02) | DRG 56 ==
PROVIDERS: ADMIT Physical Medicine & Rehabilitation Pain Medicine; ATTEND Physical Medicine & Rehabilitation Pain Medicine
DX: I69.391 Dysphagia following cerebral infarction (principal); G92.8 Other toxic encephalopathy; I21.4 Non-ST elevation (NSTEMI) myocardial infarction; N17.0 Acute kidney failure with tubular necrosis; A41.59 Other Gram-negative sepsis; I50.43 Acute on chronic combined systolic (congestive) and diastolic (congestive) heart failure; J69.0 Pneumonitis due to inhalation of food and vomit; D68.59 Other primary thrombophilia; N39.0 Urinary tract infection, site not specified; R13.10 Dysphagia, unspecified; I69.398 Other sequelae of cerebral infarction; F03.90 Unspecified dementia, unspecified severity, without behavioral disturbance, psychotic disturbance, mood disturbance, and anxiety; I11.0 Hypertensive heart disease with heart failure; D64.9 Anemia, unspecified; D69.6 Thrombocytopenia, unspecified; E03.9 Hypothyroidism, unspecified; E78.5 Hyperlipidemia, unspecified; E87.6 Hypokalemia; F01.50 Vascular dementia, unspecified severity, without behavioral disturbance, psychotic disturbance, mood disturbance, and anxiety; G93.89 Other specified disorders of brain; I25.10 Atherosclerotic heart disease of native coronary artery without angina pectoris; I25.5 Ischemic cardiomyopathy; I35.8 Other nonrheumatic aortic valve disorders; I67.2 Cerebral atherosclerosis; B96.1 Klebsiella pneumoniae [K. pneumoniae] as the cause of diseases classified elsewhere; E66.8 Other obesity; Z91.011 Allergy to milk products
CPT/HCPCS: 36415; 36600; 70030-TC; 70450; 71045; 74018; 83735; 84100; 85025; 86803; 87040; 87077; 87086; 87806; 97161; A4663; A6209; J0692; J0696; J1650; J3490; J7060

== ENCOUNTER 2020-11-18 20:28 | Inpatient (IN) | payer MEDICARE, BC ==
[~2020-11-18] VITALS: Ht 165.1 cm; Wt 65.8 kg
[~2020-11-18 20:28] MED LIST changes: +CLOP75TA15 PO; -DIVA-78 PO; +ENOX40DI SQ; +PANT40VI IV
[2020-11-18] MEDS ORDERED: MIRALAX 17 GM POWD.PACK PO PRN (21:15)
[2020-11-18] MEDS ORDERED: ACETAMINOPHEN 325 MG TABLET PO PRN (21:15)
[2020-11-18] MEDS ORDERED: NITROGLYCERIN 0.4 MG/TAB BOTTLE SL PRN (21:15)
--- NOTE | 2020-11-18 22:35 | NUR ---
Pt admitted at 2044 to [facility] from rehab under Dr. Degroot. AAO x1. On 1L O2 via NC, no acute distress noted. Pt high risk for aspiration due to CVA. Aspiration precaution maintained. Turned and repositioned. Mepilex applied on sacral area. Both heels offloaded. HOB elevated. IV site in left forearm, patent and intact. Safety measures maintained. Call light and personal items within reach. Will continue to monitor.
[2020-11-19 00:06] VITALS: BP 174/72
[2020-11-19] MEDS ORDERED: hydrALAZINE HCL 25 MG TABLET PO PRN (00:45)
--- NOTE | 2020-11-19 01:00 | NUR ---
BP elevated 174/72 at midnight. Notified Richi Carreno with new order for hydralazine 25 mg PO Q8H PRN for SBP >170. Carried out order. Continue to monitor. Addendum: 11/19/20 at 0621 by David Sagastume RN No s/s of SOB, CP, or dizziness noted. No acute distress noted.
[2020-11-19 04:06] VITALS: BP 147/89
[2020-11-19] MEDS: LEVOTHYROXINE SODIUM 75 MCG TABLET PO SCH (06:12)
--- NOTE | 2020-11-19 06:21 | NUR ---
Pt slept comfortably. HOB elevated. Kept clean and dry. Will endorse accordingly.
--- NOTE | 2020-11-19 07:30 | NUR ---
RECEIVED PATIENT IN BED AWAKE WITH CONFUSSION AND DISORIENTATION ALL NEEDS ANTICIPATED AND SATISFIED ON FIRST STEP BETH FOR WOUND MANAGEMENT TURNED AND REPOSITIONED Q2H ON O2 AT 1L/M BY NASAL CANULA WITH NO SOB AT THIS TIME.TELE IS SR MAX ASSIST FOR ALL ADL MADE COMFORTABLE WILL CONTINUE TO OBSERVE.
[2020-11-19] MEDS: ASPIRIN 81 MG TAB.CHEW PO SCH (08:41)
[2020-11-19] MEDS: PANTOPRAZOLE SODIUM 40 MG VIAL IV SCH (08:41)
[2020-11-19] MEDS: CLOPIDOGREL 75 MG TABLET PO SCH (08:41)
[2020-11-19] MEDS: CARVEDILOL 25 MG TABLET PO SCH ×2 (08:42→17:02)
[2020-11-19] MEDS: LOSARTAN POTASSIUM 50 MG TABLET PO SCH (08:43)
[2020-11-19] MEDS: Z GUARD REMEDY PASTE 57 GM TUBE TOP SCH ×2 (10:16→21:34)
--- NOTE | 2020-11-19 11:28 | NUR ---
WOUND CARE CONSULT: PT PRESENTS WITH RASH TO BUTTOCKS AND SACRAL SCARRING, PRESENT ON ADMISSION. PT ALSO NOTED TO HAVE MIDBACK ABRASION/SKIN TEAR. PT HAS FRAGILE SKIN. RECOMMENDATIONS MADE FOR WOUND CARE AND SKIN PROTECTION. DISCUSSED WITH NURSING STAFF. PT IS ON FIRST STEP YSABEL HENDERSON. IN AGREEMENT WITH PLAN OF CARE. Addendum: 11/19/20 at 1129 by OLIVIA VALDERRAMA RN Amended: Links added.
[2020-11-19 11:37] VITALS: BP 146/58
--- NOTE | 2020-11-19 15:30 | NUR ---
SEEN BY DR DU NEUROLOGY WITH NO NEW ORDERS AT THIS TIME
[2020-11-19 16:00] VITALS: BP 133/68
[2020-11-19] MEDS: CLOTRIMAZOLE 1% CREAM 30 GM TUBE TOP SCH (17:07)
--- NOTE | 2020-11-19 18:00 | NUR ---
PATIENT IS AWAKE REMAIN CONFUSED AND DISORIENTED ALL NEEDS ANTICIPATED AND SATISFIED.TOTALLY DEPENDENT FOR ALL ADL TURNED AND REPOSITIONED FOR COMFORT MADE COMFORTABLE WILL CONTINUE TO OBSERVE.
[2020-11-19 20:00] VITALS: BP 137/70
[2020-11-19] MEDS: ATORVASTATIN 40 MG TABLET PO SCH (20:24)
--- NOTE | 2020-11-19 20:30 | NUR ---
RECEIVED PATIENT ASLEEP IN BED. AROUSABLE TO TOUCH BUT QUICKLY FALLS BACK ASLEEP. UNABLE TO TAKE PO LIPITOR AT THIS TIME. PATIENT IS NOT AWAKE ENOUGH TO SWALLOW MEDICATION. VS WNL. NO S/S OF ANY PAIN OR DISCOMFORT. NO RESP. DISTRESS NOTED. ON O2 1L NC SATING WELL. VS WNL. ON TELE SR. CALL LIGHT IN REACH. ALL NEED ATTENDED. WILL CONTINUE TO MONITOR AND ASSESS.
[2020-11-20 00:09] VITALS: BP 125/60
[2020-11-20 04:10] VITALS: BP 148/62
[2020-11-20] MEDS: LEVOTHYROXINE SODIUM 75 MCG TABLET PO SCH (06:21)
--- NOTE | 2020-11-20 06:49 | NUR ---
patient slept well throughout the night. on tele sr.
[2020-11-20 07:04] LABS: HEMATOCRIT 28.6 % (36.7-47.1); MEAN CORPUSCULAR HEMOGLOBIN 32.7 uug (23.8-33.4); MEAN CORPUSCULAR VOLUME 94.3 fL (73.0-96.2); PLATELET COUNT (AUTO) 226 K/uL (152-348)
[2020-11-20 07:38] LABS: BILIRUBIN,TOTAL 0.5 mg/dL (0.2-1.0); CREATININE 1.2 mg/dL (0.6-1.3); MAGNESIUM 2.2 mg/dL (1.8-2.4); PHOSPHOROUS 3.1 mg/dL (2.5-4.9); POTASSIUM 3.5 mmol/L (3.5-5.1); TOTAL PROTEIN, SERUM 6.2 g/dL (6.4-8.2)
--- NOTE | 2020-11-20 08:09 | NUR ---
RECEIVED REPORT FROM SHIPPING ROOM HELPER. PATIENT IS SLEEPEING IN BED, PER REPORT, PATIENT SLEPT MOST OF THE NIGHT. IN NO ACUTE DISTRESS, NO RESPIRATORY DISTRESS NOTED. PATIENT DIAGNOSIS IS FAILURE TO THRIVE AND CHF. ON 1ST STEP MATTRESS.
[2020-11-20] MEDS: CLOPIDOGREL 75 MG TABLET PO SCH (08:36)
[2020-11-20] MEDS: PANTOPRAZOLE SODIUM 40 MG VIAL IV SCH (08:36)
[2020-11-20] MEDS: LOSARTAN POTASSIUM 50 MG TABLET PO SCH (08:36)
[2020-11-20] MEDS: CARVEDILOL 25 MG TABLET PO SCH ×2 (08:38→16:49)
[2020-11-20] MEDS: ASPIRIN 81 MG TAB.CHEW PO SCH (08:46)
[2020-11-20] MEDS: CLOTRIMAZOLE 1% CREAM 30 GM TUBE TOP SCH ×2 (09:26→17:03)
[2020-11-20] MEDS: Z GUARD REMEDY PASTE 57 GM TUBE TOP SCH ×2 (09:27→22:44)
[2020-11-20 11:37] VITALS: BP 153/71
[2020-11-20 16:01] VITALS: BP 117/45
--- NOTE | 2020-11-20 18:00 | NUR ---
PATIENT SITTING UP IN BED IN SEMI FOWLERS POSITION. PATIENT NOTED WITH GOOD PO INTAKE IN BREAKFAST (100%), LUNCH (75%), DINNER (30%). PATIENT NEEDS MUCH ENCOURAGEMENT AND PROMPTING AND IS A FEEDER. FAMILY WAS AT BEDSIDE DURING LUNCH TIME. PATIENT COMFORTABLE, NO DISCOMFORT NOTED. PATIENT DOES NOT ANSWER QUESTIONS. MOANS WHEN MOVED OR REPOSITIONED, RELIEVED QUICKLY WHEN AT REST.
--- NOTE | 2020-11-20 19:30 | NUR ---
RECEIVED PT ON BED IN SEMIFOWLERS POSITION. IV INTACT. PT ON 1L NASAL CANNULA. PT ON SINUS RHYTHM. SAFETY AND COMFORT PROVIDED.WILL CONTINUE TO MONITOR.
[2020-11-20 20:00] VITALS: BP 143/71
[2020-11-20] MEDS: ATORVASTATIN 40 MG TABLET PO SCH (20:14)
[2020-11-21] VITALS: BP 149/70
[2020-11-21 04:00] VITALS: BP 138/64
[2020-11-21] MEDS: LEVOTHYROXINE SODIUM 75 MCG TABLET PO SCH (06:23)
--- NOTE | 2020-11-21 06:34 | NUR ---
PT SLEPT INTERMITTENTLY. PT IN NO ACUTE DISTRESS. PRESCRIBED MEDICATION GIVEN AND PT TOLERATED IT WELL. PT TURNED AND REPOSITIONED. DRESSING CHANGED. PT ON SINUS RHYTHM. SAFETY AND COMFORT PROVIDED. WILL CONTINUE TO MONITOR.
[2020-11-21 06:45] LABS: HEMATOCRIT 28.3 % (36.7-47.1); MEAN CORPUSCULAR HEMOGLOBIN 31.8 uug (23.8-33.4); MEAN CORPUSCULAR VOLUME 91.4 fL (73.0-96.2); PLATELET COUNT (AUTO) 233 K/uL (152-348)
[2020-11-21 07:00] LABS: CREATININE 1.2 mg/dL (0.6-1.3); MAGNESIUM 2.3 mg/dL (1.8-2.4); PHOSPHOROUS 3.3 mg/dL (2.5-4.9); POTASSIUM 3.9 mmol/L (3.5-5.1)
--- NOTE | 2020-11-21 07:20 | NUR ---
ON FIRST STEP BETH AWAKE CONFUSED DISORIENTED ALL NEEDS ANTICIPATED AND SATISFIED TURNED AND REPOSITIONED FOR COMFORT.HE IS ON O2 AT 1L/M BY NASAL CANULA WITH NO SOB AT THIS TIME MADE COMFORTABLE AND WILL CONTINUE TO OBSERVE AND ENCOURAGE ORAL INTAKE.
[2020-11-21] MEDS: PANTOPRAZOLE SODIUM 40 MG VIAL IV SCH (08:41)
[2020-11-21] MEDS: ASPIRIN 81 MG TAB.CHEW PO SCH (08:41)
[2020-11-21] MEDS: CLOPIDOGREL 75 MG TABLET PO SCH (08:41)
[2020-11-21] MEDS: LOSARTAN POTASSIUM 50 MG TABLET PO SCH (08:42)
[2020-11-21] MEDS: CARVEDILOL 25 MG TABLET PO SCH ×2 (08:42→17:19)
[2020-11-21] MEDS: Z GUARD REMEDY PASTE 57 GM TUBE TOP SCH (08:42)
[2020-11-21] MEDS: CLOTRIMAZOLE 1% CREAM 30 GM TUBE TOP SCH ×2 (08:43→17:20)
--- NOTE | 2020-11-21 09:00 | NUR ---
REFUSED TO EAT HIS BREAKFAST BUT WAS ABLE TO GIVE HIM HIS DUE MEDICATIONS WITH LOTS OF ATTEMPTS AND ENCOURAGEMENTS .
[2020-11-21 11:51] VITALS: BP 177/51
--- NOTE | 2020-11-21 12:05 | NUR ---
PATIENT AND SON STARR AT THE BEDSIDE AND SON STARR STATED THAT HE NEEDS TWO DOCTORS TO SIGN THAT PATIENT IS UNABLE TO SIGN LEGAL DOCUMENTS TO ENABLE THEM TO SELL HIS HOUSE IN [place] SPOKE WITH ROSALINA THE INDUSTRIAL ENGINEERING INTERN AND SHE SAID TO CALL THE [employer] TO REACH OUT TO STARR TO HELP THEM SO I CALLED AND NOTIFIED [employer] AND GAVE HER [employer] PHONE NUMBER AND SHE WILL CALL HIM
[2020-11-21 12:45] VITALS: BP 129/67
--- NOTE | 2020-11-21 12:45 | NUR ---
BLOOD PRESSURE TAKEN AT 1151 SHOWS B/P AT 177/51 IS VISIBLY AGITATED PATIENT MADE COMFORTABLE HE IS CALMER NOW AND BLOOD PRESSURE RECHECKED AND ITS 129/67 HE IS SLEEPING AT THIS TIME.
[2020-11-21 15:36] VITALS: BP 155/64
[2020-11-21 17:19] VITALS: BP 149/68
--- NOTE | 2020-11-21 17:42 | NUR ---
CALL RECEIVED FROM THE HOUSESMITH CLIENT ACCOUNT MANAGER STATED THAT SHE SPOKE WITH THE PATIENTS SON AND THAT PATIENT WILL BE DISCHARGED TODAY WILL BE PICKED UP BY THE [facility] ABOUT 1830 TODAY
--- NOTE | 2020-11-21 18:00 | NUR ---
CALLED [facility] AND REPORT GIVEN TO SERGIO BREWER FOR CONTINUING CARE.
--- NOTE | 2020-11-21 19:35 | NUR ---
PATIENT DISCHARGED PICKED UP BY [facility] IN STABLE CONDITION WITH ALL HIS PERSONAL BELONGINGS PATIENT REMAINS CONFUSED DISORIENTED AND UNABLE TO BE INSTRUCTED ON DISCHARGE INSTRUCTIONS
== END 2020-11-21 19:35 | DRG 91 ==
LOC: TELE3 20:28 → MEDSURG3 11-21 10:40
PROVIDERS: ADMIT Internal Medicine; ATTEND Student in an Organized Health Care Education/Training Program
DX: G92.8 Other toxic encephalopathy (principal); A41.59 Other Gram-negative sepsis; I50.43 Acute on chronic combined systolic (congestive) and diastolic (congestive) heart failure; J69.0 Pneumonitis due to inhalation of food and vomit; N17.0 Acute kidney failure with tubular necrosis; D68.59 Other primary thrombophilia; N39.0 Urinary tract infection, site not specified; I11.0 Hypertensive heart disease with heart failure; Z74.09 Other reduced mobility; D64.9 Anemia, unspecified; B96.1 Klebsiella pneumoniae [K. pneumoniae] as the cause of diseases classified elsewhere; D69.6 Thrombocytopenia, unspecified; E03.9 Hypothyroidism, unspecified; E78.5 Hyperlipidemia, unspecified; E87.6 Hypokalemia; I25.10 Atherosclerotic heart disease of native coronary artery without angina pectoris; F01.50 Vascular dementia, unspecified severity, without behavioral disturbance, psychotic disturbance, mood disturbance, and anxiety; R73.9 Hyperglycemia, unspecified; I35.8 Other nonrheumatic aortic valve disorders; I25.2 Old myocardial infarction; R00.1 Bradycardia, unspecified; I69.391 Dysphagia following cerebral infarction; Z66 Do not resuscitate; Z74.01 Bed confinement status; R62.7 Adult failure to thrive
CPT/HCPCS: 36415; 70030-TC; 71045; 83735; 84100; 85025; A6209; C9113; G0378